=== PATIENT | female | born 1970 | race Caucasian/White ===

== ENCOUNTER 2017-08-14 11:27 | Emergency (ER) | payer BC ==
[2017-08-14] MEDS ORDERED: Doxycycline 100 MG Cap PO ONE (12:19)
--- NOTE | 2017-08-14 12:24 | EDM.PDOC ---
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 She states it is increased in size over the last 4-5 days making it difficult to walk or sit. She is also developed swelling and pain in her left inguinal area of the groin. She also discovered a marble-sized lesion in her mid right labia majora yesterday which is mildly tender as well but no active drainage. While in the bathtub this morning the inferior aspect of the left labia majora wound draining some seropurulent material. Patient has had no previous similar process. She does not shave her volar. She is using an hCG cream that she has compounded in a pharmacy in [place] to the vagina area that she is feeling atrophic vaginitis. Whether or not this is contributing to the problem or not is unclear. Is feeling mildly tired today and perhaps a little bit fluids. She is able to eat and drink without any nausea or vomiting however. Has exhibited no known temperature. Just feels excessively tired. She' s had no previous similar problems. Onset: Gradual Onset Date: 08/09/17 (Left labia lesion noted 5 days ago. Left inguinal pain developed 2 days ago.) Duration: Day(s): Location: Reports: Other ((5 and) Quality: Reports: Ache, Pressure, Throbbing Severity: Moderate Improves with: Reports: Other (Sitting in a hot bath seems to help somewhat.) Worsens with: Reports: Other (Sitting and walking make it worse.), Movement Context: Denies: Activity, Exercise, Lifting, Sick Contact, Trauma, Other Associated Symptoms: Reports: Loss of Appetite, Malaise (perhaps perhaps slight decrease in appetite). Denies: No Other Symptoms, Confusion, Chest Pain, Cough , cough w sputum, Diaphoresis, Fever/Chills, Headaches, Nausea/Vomiting, Rash, Seizure, Shortness of Breath, Syncope, Weakness Treatments CLINICAL PROFESSOR: Reports: Acetaminophen, NSAIDS Perineal Area Pain Score (Numeric/FACES): 3 - Related Data Allergies Allergy/AdvReac Type Severity Reaction Status Date / Time No Known Allergies Allergy Verified 08/14/17 11:52 Home Meds: Home Meds Doxycycline [Vibramycin 25 MG/5 ML Susp] 100 mg PO Q12H #28 bottle 08/14/17 [Rx] Fluconazole [Diflucan] 150 mg PO ONETIME #1 tab 08/14/17 [Rx] metFORMIN HCl [Metformin HCl] 1,000 mg PO BID 08/14/17 [History] Past Medical History Endocrine/Metabolic History: Reports: Diabetes, Type II - Past Surgical History GI Surgical History: Reports: Appendectomy Female Surgical History: Reports: Hysterectomy Social & Family History - Tobacco Use Smoking Status *Q: Never Smoker - Caffeine Use Caffeine Use: Reports: Coffee, Soda - Recreational Drug Use Recreational Drug Use: No ED ROS GENERAL - Review of Systems Review Of Systems: See Below Constitutional: Reports: Malaise, Weakness, Fatigue, Decreased Appetite. Denies : Fever, Chills, Weight Loss HEENT: Reports: No Symptoms (Mild) Respiratory: Reports: No Symptoms Cardiovascular: Reports: No Symptoms Endocrine: Reports: No Symptoms GI/Abdominal: Reports: Other (His pain and discomfort as well as a palpable lump in her left inguinal area. She identified this 2 days ago and it's getting worse.) : Reports: Other (Left vulvar lesion developed 5 days ago has become increasingly swollen and painful and started to drain seropurulent material this morning. She also discovered a marble-sized lesion in the mid right labia majora yesterday morning in the bath.) Musculoskeletal: Reports: No Symptoms Skin: Reports: Lumps (In both labia majora.), Other Neurological: Reports: No Symptoms Psychiatric: Reports: No Symptoms Hematologic/Lymphatic: Reports: No Symptoms Immunologic: Reports: No Symptoms ED EXAM, RENAL/ - Physical Exam Exam: See Below Exam Limited By: No Limitations General Appearance: Alert, WD/WN, Mild Distress (In mild discomfort.) GI/Abdominal: Other (Patient does have inguinal adenopathy centimeters size in the left inguinal area. There is no femoral lymphadenopathy noted. This represented adenitis it is quite tender to palpation. It is mobile.) (Female) Exam: Other (Patient has a swelling of the left labia majora measuring at least 2.5 cm in length and the centimeter in width. It is tender to palpation. There is an area of seropurulent drainage from the inferior aspect of the wound appears to be an infected sebaceous cyst within the labia majora. There is no true cellulitis of the labia. On the right side there is a marble-sized swelling in the mid left labia majora which appears to be a sebaceous cyst that is not causing any problems at this time. The introitus appears to be normal without any Bartholin's gland abscess or drainage.) Back Exam: Normal Inspection, Full Range of Motion. No: CVA Tenderness (L), CVA Tenderness (R) Extremities: Normal Inspection, Normal Range of Motion, Non-Tender, No Pedal Edema Neurological: Alert, Oriented, CN II-XII Intact, Normal Cognition Psychiatric: Normal Affect, Normal Mood Skin Exam: Warm, Dry, Intact, Normal Color, Other (Swelling and rash described as above involving the left labia majora.) Course - Vital Signs Last Recorded V/S: Last Vital Signs Temp 37.3 C 08/14/17 11:48 Pulse 87 08/14/17 11:48 Resp 12 08/14/17 11:48 BP 112/99 H 08/14/17 11:48 Pulse Ox 99 08/14/17 11:48 - Orders/Labs/Meds Meds: Medications Discontinued Medications Generic Name Dose Route Start Last Admin Trade Name Marvelq PRN Reason Stop Dose Admin Doxycycline Hyclate 200 mg 08/14/17 12:19 08/14/17 12:28 Vibramycin PO 08/14/17 12:20 200 mg ONETIME ONE Administration - Radiology Interpretation Free Text/Narrative:: 46-year-old female presents to the ED with a 5 day history of swelling painful lesion left labia majora. This appears to be an infected sebaceous cyst. It opened up and drained some seropurulent material from the inferior aspect of the wound will in the bathtub this morning. She is also developed lymphadenopathy in the left inguinal lymph nodes with some adenitis as it's quite tender to palpation. Largest node is approximate centimeter in size and is mobile. There is a marble-sized lesion in the mid right labia majora which does not appear to be causing problems at this time. It appears to be a sebaceous cyst as well. Since she is not systemically ill I will place her on doxycycline 200 mg now then 100 mg twice daily for the next 14 days to clear up infection. She reports that she often develops a vaginal candidiasis while on antibiotics. Plan will be to provide her with a prescription for Diflucan 150 mg strength to be filled if needed for development of vaginal candidiasis. 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 I did not see any indications to incise and drain the area today. Departure - Departure Time of Disposition: 12:19 Disposition: Home, Self-Care 01 Condition: Fair Clinical Impression: Infected sebaceous cyst of skin, Lymphadenitis, acute - Discharge Information Prescriptions: Doxycycline [Vibramycin 25 MG/5 ML Susp] 100 mg PO Q12H #28 bottle Fluconazole [Diflucan] 150 mg PO ONETIME #1 tab Instructions: Epidermal Cyst, [id number] Referrals: PCP,Not In Area [Primary Care Provider] - Forms: ED Department Discharge Additional Instructions: Evaluation the emergency room today in regards to development of a infected sebaceous cyst in the left labia majora of the vulva and also developing infected sebaceous cyst in the mid left labia majora over the last 2 days. The one on the left side appears to started 5 days ago. This resulted in swelling and tenderness of the lymph nodes in the left inguinal area or groin. You're starting to feel somewhat sick or flulike suggesting the infection is becoming systemic. Examination reveals that the infected sebaceous cyst on the left labia majora has started to drain already and therefore would not benefit from incision and drainage. Decision made to treat you with oral antibiotic doxycycline. You're given the first 2 tablets in the ED. Need to take a another dose tonight before bed. This these tablets should almost always be taken with a little fluid in your stomach. This be taken twice daily for the next 14 days to fully eradicate this infection. Of note you are prone to getting this infection back again in the future. Cause is unclear but friction over the hair follicles often will close up the sebaceous cyst duct which results in infection. Treatment is to into new sitz baths 3 or 4 times daily and as far as wattage you can stand to promote drainage of the infection. You should appreciate marked improvemet in the size of the swelling and pain over the next 72 hours after initiating antibiotic is. If not getting better please follow-up with her personal care physician or FREIGHT ELEVATOR OPERATOR. I did write a prescription for Diflucan since she reports you are very prone to development of vaginal candidiasis when taking any antibiotics. You can fill this at any time.
== END 2017-08-14 12:40 | disposition home or self-care (01) ==
LOC: JD.ED 11:27
DX: N94.89 Other specified conditions associated with female genital organs and menstrual cycle (principal); L04.1 Acute lymphadenitis of trunk; E11.9 Type 2 diabetes mellitus without complications; Z79.84 Long term (current) use of oral hypoglycemic drugs
CPT/HCPCS: 99283; A9270